=== PATIENT | female | born 1995 | race Caucasian/White ===

== ENCOUNTER 2024-04-29 17:51 | Emergency (ER) | payer SELFPAY ==
[~2024-04-29] VITALS: Ht 162.6 cm; Wt 93.0 kg
[2024-04-29 19:11] LABS: CORONAVIRUS COVID-19 AG NEGATIVE (NEGATIVE); INFLUENZA A AG NEGATIVE (NEGATIVE); INFLUENZA B AG NEGATIVE (NEGATIVE)
[2024-04-29 19:52] VITALS: PULSE 61; RESP 19; TEMP 98.8; O2SAT 100
== END 2024-04-29 19:51 | disposition home or self-care (01) ==
LOC: ER 18:33
DX: R05.9 Cough, unspecified (principal); J06.9 Acute upper respiratory infection, unspecified; Z20.822 Contact with and (suspected) exposure to COVID-19
CPT/HCPCS: 71046; 99283